=== PATIENT | male | born 1955 | race Caucasian/White ===

== ENCOUNTER 2018-11-11 11:26 | Day surgery (SDC) | payer SELFPAY ==
[2018-11-11] MEDS ORDERED: NA CHLORIDE 0.9% 500 ML ONE (11:46)
[2018-11-11] MEDS ORDERED: PHENYLEPHRINE 10% OPTH 5ML ONE (11:46)
[2018-11-11] MEDS ORDERED: CYCLOPENTOLATE 1% OPTH 2 ML ONE (11:47)
[2018-11-11] MEDS: TETRACAINE HCL 0.5% 2ML OPTH ONE ×2 (11:52→12:53)
[2018-11-11] MEDS: LIDOCAINE 2% MPF 5 ML VIAL ONE ×2 (11:52→12:53)
[2018-11-11] MEDS: BUPIVACAINE 0.25% PF 10 ML VIAL ONE ×2 (11:53→12:53)
[2018-11-11] MEDS ORDERED: CYCLOPENTOLATE 1% OPTH 2 ML OPTH ONE ×2 (11:56→12:06)
[2018-11-11] MEDS ORDERED: PHENYLEPHRINE 10% OPTH 5ML OPTH ONE ×2 (11:56→12:06)
[2018-11-11] MEDS ORDERED: BALANCED SALT IRRIG PLAIN 500 ML BTL IRR ONE (12:05)
[2018-11-11] MEDS ORDERED: DUOVISC 1 KIT OPTH ONE ×2 (12:05→14:04)
[2018-11-11] MEDS ORDERED: PROPOFOL 200 MG/20 ML VIAL IV ONE (12:54)
[2018-11-11] MEDS ORDERED: LIDOCAINE 2% MPF 5 ML VIAL ONE (12:55)
[2018-11-11] MEDS ORDERED: MOXIFLOXACIN HCL 10 DROPS/ML **OR USE OPTH ONE (12:57)
[2018-11-11] MEDS ORDERED: EPINEPHRINE/PF 1 MG/ML AMP ONE ×2 (12:57)
[2018-11-11] MEDS ORDERED: OFLOXACIN OPH 0.3%-5 ML BTL ONE (12:57)
[2018-11-11] MEDS ORDERED: NS 0.9% VIAL 10 ML ONE (12:57)
[2018-11-11] MEDS ORDERED: LIDOCAINE 1% MPF 5 ML VIAL ONE (13:45)
[2018-11-11] MEDS ORDERED: MIDAZOLAM HCL 2 MG/2 ML INJ ONE (13:56)
--- NOTE | 2018-11-11 14:21 | P.BOP ---
Preoperative diagnosis: Nuclear sclerotic cataract OD Postoperative diagnosis: Same Primary procedure: Phacoemulsification with IOL OD Estimated blood loss: None Anesthesia: Local (Retrobulbar block) Complications: None Implants: SA60WF +21.0 Transferred to: Other (Day surgery) Condition: Good
--- NOTE | 2018-11-12 00:49 | OP ---
Surgeon: Pat Sorensen MD Anesthesiologist: Carin Kendrick CRNA and Luciano Encarnacion MD. Preoperative Diagnosis: Nuclear sclerotic cataract, right eye. Operation Performed: Phacoemulsification with intraocular lens implant, right eye. Anesthesia: Per cataract surgery. Complications: None. Description Of Procedure: In the operating room the patient was prepped and draped in the usual sterile fashion for ophthalmic surgery. A lid speculum was placed in the right eye. Two paracentesis sites were made superiorly and inferiorly in the limbal cornea. Viscoat was placed in the anterior chamber and a crescent blade was used to make a corneal groove and tunnel, and a keratome was used to enter the anterior chamber. Provisc was placed in the anterior chamber and a 360 degree capsulotomy was performed with a cystitome. The lens was hydrodissected with BSS and rotated freely. The lens was removed with a stop and chop technique. 10.62 Phaco CDE was used to remove the lens. Residual cortex was removed with the irrigation and aspiration. Provisc was placed in the capsular bag. A SA60WF +21.0 lens was placed in the capsular bag without complications. Irrigation and aspiration were used to remove residual viscoelastic. The paracentesis sites were hydrated with BSS. The wound and paracentesis sites were inspected and found to be watertight. Vigamox 0.07 cc was placed intracamerally at the end of the procedure. The eye was irrigated with balanced salt solution. The eye was patched with a soft cotton patch and [place]arton metal shield. The patient was returned to day surgery in good condition. Comments: A retrobulbar block was performed with an Granado needle. Approximately 5 cc of 2% xylocaine and 0.25% bupivacaine in a 1:1 mixture was injected, A [place] balloon was left on the eye for approximately 5 minutes. Prior to Viscoat, 1% preservative-free lidocaine was placed in the anterior chamber. At the end of the procedure, one 10-0 nylon suture was placed in the wound. Reforming the anterior chamber was somewhat difficult and Vigamox was not placed in the eye. The lens remains slightly subluxed superiorly but, because of the difficulty maintaining the anterior chamber once entry was made, this was not repositioned. Discharge Instructions: Mr. Werner is discharged to home in good condition and is to follow up with Dr. Sorensen today at about 3 and in the morning. RIO/DENNY Voice ID: [id number] Report ID: [id number]
== END 2018-11-11 14:44 | disposition home or self-care (01) ==
LOC: OR 11:26
PROVIDERS: ATTEND Ophthalmology Retina Specialist
PROC: 08RJ3JZ Replacement of Right Lens with Synthetic Substitute, Percutaneous Approach (ICD-10-PCS; principal; 2018-11-11 11:30)
DX: H25.11 Age-related nuclear cataract, right eye (principal); Z79.82 Long term (current) use of aspirin; Z87.891 Personal history of nicotine dependence
CPT/HCPCS: J0171; J2250; J2704